=== PATIENT | female | born 1980 | race Caucasian/White ===

== ENCOUNTER 2022-02-10 17:15 | Emergency (ER) | payer OTHER ==
[2022-02-10] MEDS ORDERED: Cefdinir 300 MG Cap PO ONE (19:09)
== END 2022-02-10 19:30 | disposition home or self-care (01) ==
LOC: JD.ED 17:15
DX: N39.0 Urinary tract infection, site not specified (principal); Z88.0 Allergy status to penicillin; Z88.2 Allergy status to sulfonamides; Z79.899 Other long term (current) drug therapy
CPT/HCPCS: 81001; 87086; 99283; A9270